=== PATIENT | female | born 1960 | race Caucasian/White ===

== ENCOUNTER 2025-05-07 11:40 | Inpatient (IN) ==
[2025-05-07] MEDS ORDERED: IOPAMIDOL 100 ML BOTTLE IV ONE (11:41)
[2025-05-07] MEDS: ONDANSETRON 4 MG/2 ML VIAL IV ONE (12:11)
[2025-05-07] MEDS: 0.9 % SODIUM CHLORIDE 1,000 ML IV ONE (12:11)
[2025-05-07 12:34] LABS: Basophils # (Auto) 0.02 K/mcL (0.00-0.30); Basophils % (Auto) 0.2 % (0.0-2.0); Eosinophils # (Auto) 0.06 K/mcL (0.00-0.70); Eosinophils % (Auto) 0.5 % (0.0-7.0); Hematocrit 43.4 % (34.1-44.9); Hemoglobin 15.1 g/dL (11.2-15.7); Lymphocytes # (Auto) 1.62 K/mcL (1.50-4.80); Lymphocytes % (Auto) 12.5 % (15.5-49.0); Mean Corpuscular HGB Conc 34.8 g/dL (31.0-36.0); Monocytes # (Auto) 1.02 K/mcL (0.10-0.90); Monocytes % (Auto) 7.9 % (1.0-12.0); Neutrophils % (Auto) 78.7 % (38.0-78.0); Platelet Count 198 K/mcL (140-440); RBC 4.96 M/mcL (3.59-5.38); WBC 12.9 K/mcL (4.5-11.0)
[2025-05-07 12:56] LABS: ALT/SGPT 34 U/L (<40); AST/SGOT 20 U/L (<32); Albumin 4.5 gm/dL (3.2-5.2); Albumin/Globulin Ratio 1.7 (1.0-2.3); Alkaline Phosphatase 64 U/L (39-117); Anion Gap 14.0 (8.0-16.0); Bilirubin,Total 0.8 mg/dL (0.1-1.0); Blood Urea Nitrogen 12 mg/dL (8-23); Calcium 9.8 mg/dL (8.6-10.4); Carbon Dioxide 24 mmol/L (22-30); Chloride 100 mmol/L (96-108); Globulin 2.6 gm/dL (2.2-3.7); Glucose 139 mg/dL (70-105); Potassium 4.0 mmol/L (3.3-5.1); Sodium 138 mmol/L (133-145)
[2025-05-07] MEDS ORDERED: ACETAMINOPHEN 325 MG TABLET PO PRN (13:16)
[2025-05-07] MEDS: PIPERACILLIN SODIUM/TAZOBACTAM 4.5 GM in DEXTROSE 5% IN WATER 50 ML IV ONE (13:23)
[2025-05-07] MEDS: ONDANSETRON 4 MG/2 ML VIAL IV PRN (13:48)
[2025-05-07 13:55] LABS: Bacteria,Urine Rare /hpf (0); Bilirubin,Urine Negative (Negative); Color,Urine Yellow; Glucose,Urine (UA) Negative (Negative); Ketones,Urine Negative (Negative); Leukocyte Esterase,Urine Negative /uL (Negative); PH,Urine 7.5 (5.0-9.0); Protein,Urine Negative (Negative); Specific Gravity,Urine 1.010 (1.000-1.035); Urobilinogen,Urine Normal
[2025-05-07] MEDS: 0.9 % SODIUM CHLORIDE 1,000 ML IV SCH (19:45)
[2025-05-07] MEDS: PIPERACILLIN SODIUM/TAZOBACTAM 3.375 GM in DEXTROSE 5% IN WATER 100 ML IV SCH (19:45)
[2025-05-07] MEDS: ACETAMINOPHEN 1,000 MG/100 ML BAG IV SCH (21:30)
[2025-05-08 06:11] LABS: Basophils # (Auto) 0.02 K/mcL (0.00-0.30); Basophils % (Auto) 0.2 % (0.0-2.0); Eosinophils # (Auto) 0.10 K/mcL (0.00-0.70); Eosinophils % (Auto) 1.2 % (0.0-7.0); Hematocrit 37.7 % (34.1-44.9); Hemoglobin 12.7 g/dL (11.2-15.7); Lymphocytes # (Auto) 1.57 K/mcL (1.50-4.80); Lymphocytes % (Auto) 18.7 % (15.5-49.0); Mean Corpuscular HGB Conc 33.7 g/dL (31.0-36.0); Monocytes # (Auto) 0.83 K/mcL (0.10-0.90); Monocytes % (Auto) 9.9 % (1.0-12.0); Neutrophils % (Auto) 69.6 % (38.0-78.0); Platelet Count 153 K/mcL (140-440); RBC 4.18 M/mcL (3.59-5.38); WBC 8.4 K/mcL (4.5-11.0)
[2025-05-08] MEDS: HYDROmorphone 0.5 MG/0.5 ML SYRINGE IV PRN (09:02)
[2025-05-08] MEDS: PIPERACILLIN SODIUM/TAZOBACTAM 4.5 GM in DEXTROSE 5% IN WATER 100 ML IV SCH (14:37)
[2025-05-08] MEDS: POLYETHYLENE GLYCOL 3350 17 GM PACKET PO SCH (15:46)
[2025-05-09 06:12] LABS: Basophils # (Auto) 0.01 K/mcL (0.00-0.30); Basophils % (Auto) 0.1 % (0.0-2.0); Eosinophils # (Auto) 0.15 K/mcL (0.00-0.70); Eosinophils % (Auto) 2.1 % (0.0-7.0); Hematocrit 36.0 % (34.1-44.9); Hemoglobin 12.2 g/dL (11.2-15.7); Lymphocytes # (Auto) 1.35 K/mcL (1.50-4.80); Lymphocytes % (Auto) 18.6 % (15.5-49.0); Mean Corpuscular HGB Conc 33.9 g/dL (31.0-36.0); Monocytes # (Auto) 0.60 K/mcL (0.10-0.90); Monocytes % (Auto) 8.3 % (1.0-12.0); Neutrophils % (Auto) 70.5 % (38.0-78.0); Platelet Count 167 K/mcL (140-440); RBC 3.96 M/mcL (3.59-5.38); WBC 7.3 K/mcL (4.5-11.0)
[2025-05-10 06:41] LABS: Basophils # (Auto) 0.03 K/mcL (0.00-0.30); Basophils % (Auto) 0.6 % (0.0-2.0); Eosinophils # (Auto) 0.15 K/mcL (0.00-0.70); Eosinophils % (Auto) 3.0 % (0.0-7.0); Hematocrit 36.9 % (34.1-44.9); Hemoglobin 12.4 g/dL (11.2-15.7); Lymphocytes # (Auto) 1.45 K/mcL (1.50-4.80); Lymphocytes % (Auto) 29.4 % (15.5-49.0); Mean Corpuscular HGB Conc 33.6 g/dL (31.0-36.0); Monocytes # (Auto) 0.51 K/mcL (0.10-0.90); Monocytes % (Auto) 10.3 % (1.0-12.0); Neutrophils % (Auto) 56.5 % (38.0-78.0); Platelet Count 192 K/mcL (140-440); RBC 4.13 M/mcL (3.59-5.38); WBC 4.9 K/mcL (4.5-11.0)
[2025-05-10 07:38] LABS: Estimated Average Glucose(eAG) 134 mg/dL; Hemoglobin A1C 6.3 % Hgb (4.0-6.0)
[2025-05-10] MEDS ORDERED: IOPAMIDOL 100 ML BOTTLE IV ONE (08:36)
[2025-05-12 06:26] LABS: Basophils # (Auto) 0.04 K/mcL (0.00-0.30); Basophils % (Auto) 0.8 % (0.0-2.0); Eosinophils # (Auto) 0.17 K/mcL (0.00-0.70); Eosinophils % (Auto) 3.5 % (0.0-7.0); Hematocrit 41.0 % (34.1-44.9); Hemoglobin 14.2 g/dL (11.2-15.7); Lymphocytes # (Auto) 1.32 K/mcL (1.50-4.80); Lymphocytes % (Auto) 27.2 % (15.5-49.0); Mean Corpuscular HGB Conc 34.6 g/dL (31.0-36.0); Monocytes # (Auto) 0.42 K/mcL (0.10-0.90); Monocytes % (Auto) 8.6 % (1.0-12.0); Neutrophils % (Auto) 59.5 % (38.0-78.0); Platelet Count 222 K/mcL (140-440); RBC 4.69 M/mcL (3.59-5.38); WBC 4.9 K/mcL (4.5-11.0)
[2025-05-12 08:19] VITALS: O2SAT 98
[2025-05-12 12:01] VITALS: TEMP 98.1
== END 2025-05-12 15:48 | disposition home or self-care (01) | DRG 392 ==
LOC: ICU 11:40 → ED 11:40 → ICU 14:27 → MEDSUR 05-10 08:17
PROVIDERS: ADMIT Family Medicine Adult Medicine; ATTEND Family Medicine Adult Medicine